=== PATIENT | female | born 1985 | race Caucasian/White ===

== ENCOUNTER 2018-01-20 02:35 | Inpatient (IN) ==
--- NOTE | 2018-01-20 04:15 | Internal Med History&Physical ---
<Bong Reveles - Last Filed: 01/20/18 05:36> Date of Encounter: 01/20/18 Time of Encounter: 04:10 Internal Medicine - H&P: HPI Chief complaint: OD Admitted From: Hospital to Hospital Transfer Plans for Post Hospital Care: Transfer Psych Facility History of present illness: Ms. Crook is a 32 year old female with history of asthma, pancreatic cancer status post partial pancreatectomy, migraine headaches, status post splenectomy who presented to the ED via EMS/[facility] due to intentional suicide attempt. At the time of arrival and physical examination, the patient is completely unconscious and unable to be aroused by any form of stimuli so history is primarily received from previous providers and documentation. Patient apparently was seen by her 12-year-old son after taking up to 40 and labeled sleeping pills and/or muscle relaxants. Her son says that he witnessed this and at that time she had locked herself in her room. He called his dad who then called the police. The police knocked down the door and she was taken to the hospital via EMS. In the ED, the patient was noted to be drowsy, however she otherwise was protecting her airway and demonstrated normal vitals. Urine drug screen was normal. She does have a history of suicide attempts in the past, according to medical records. Past Med Surg Social Fam HX - Past Medical History Medical history: asthma, cancer, GERD, migraine, other Additional medical history: pancreatic cancer Psychiatric history: depression - Past Surgical History Surgical History: , splenectomy, other (Partial pancreatectomy) Additional surgical history: lymph nodes removed from neck - Social History Smoking Status: Current every day smoker Smokeless Tobacco Status: No Alcohol use: occasionally Drug use: marijuana Internal Medicine - H&P: Meds Albuterol Sulfate [Albuterol Inhaler] 2 aerosol IH QID 07/22/17 [History] Omeprazole Magnesium [Prilosec] 40 mg PO DAILY 07/22/17 [History] Lipase/Protease/Amylase [Sukh Bender 12,000 Units Capsule] 1 each PO TID 01/15/18 [History] Naproxen [Naprosyn] 500 mg PO BID #10 tablet 01/15/18 [Rx] Allergy/AdvReac Type Severity Reaction Status Date / Time Amoxicillin AdvReac Rash Verified 07/08/17 23:06 latex AdvReac Rash Verified 07/08/17 23:06 Penicillins [PCN] AdvReac Rash Verified 07/08/17 23:06 ROS unobtainable: due to mental status All Systems PM: A 10-system review of systems was performed and is negative for pertinent findings except as documented above in the HPI. - Constitutional Exam: Gen: Vitals noted. Patient is unconscious at time of examination with episodes of intermittent apnea Eyes: anicteric sclerae, moist conjunctivae HENT: Atraumatic; oropharynx clear with moist mucous membranes and no mucosal ulcerations; normal hard and soft palate Neck: Trachea midline; supple, no thyromegaly or lymphadenopathy Cardiac: RRR, no murmur, +S1/S2 Pulmonary: CTA bilaterally, no wheezes, rales or rhonchi, equal chest expansion Abdomen: soft, nontender, no guarding. No masses or hepatosplenomegaly MSK: ROM intact, no joint swelling noted Extremities: no BLE edema, nontender calf, no cyanosis or clubbing Skin: Normal temperature, turgor and texture; no rash, ulcers or subcutaneous nodules Neuro: Patient is not alert to any form of stimuli Internal Med - H&P Results - Labs CBC & Chem 7: 01/20/18 04:48 - Assessment and plan (1) Suicide attempt by multiple drug overdose Current Visit: Yes Status: Acute Assessment and plan: Intentional overdose with unknown intoxicants per family members Patient apparently took multiple pills in an attempt to end her own life Poison control was not called from ED as the medications were unmarked Vitals have remained stable during her stay thus far We will continue to monitor vitals, cardiac rhythm, QTc, neurological function Consult to psychiatry is indicated when patient's mentation improves Qualifiers: Encounter type: initial encounter Qualified Code(s): T50.902A - Poisoning by unspecified drugs, medicaments and biological substances, intentional self- harm, initial encounter (2) Respiratory depression Current Visit: Yes Status: Acute Assessment and plan: Respiratory depression with intermittent apnea secondary to toxic ingestion Patient is having intermittent episodes of prolonged apnea She otherwise appears to be protecting her airway appropriately ABG 7.29/56/141/27/99 on 2L If the patient's respiratory status worsens, we will need to intubate We will repeat ABG at 8am Consult to Pulmonology (3) Pancreas (digestive gland) works poorly Current Visit: Yes Status: Acute Assessment and plan: Hx of pancreatic cancer with partial pancreatectomy We will hold supplemental peptides while NPO (4) DVT prophylaxis Current Visit: Yes Status: Acute Assessment and plan: SQ Heparin - Time Spent With Patient Total time spent is greater than 50% in coordination of care (as documented) at patient's floor/unit and/or counseling patient: Douglas Hinojosa - Last Filed: 01/20/18 06:09> Date of Encounter: 01/20/18 Internal Medicine - H&P: HPI History of present illness: Ms. Crook is a 32 year old female All Systems PM: A 10-system review of systems was performed and is negative for pertinent findings except as documented above in the HPI. - Constitutional Vitals: Pulse Resp BP Pulse Ox 86 15 99/42 97 01/20/18 06:00 01/20/18 06:00 01/20/18 06:00 01/20/18 06:00 Internal Med - H&P Results - Labs CBC & Chem 7: 01/20/18 04:48 Labs: BMP 01/20/18 04:48 Sodium 145 Potassium 4.0 Chloride 114 H Carbon Dioxide 27 BUN 10 Creatinine 0.52 L Glucose 113 H Calcium 8.4 L Liver Function 01/20/18 Range/Units 04:48 Total Bilirubin 0.4 (0.3-1.0) mg/dL AST 12 L (13-39) Units/L ALT 10 (7-52) Units/L Alkaline Phosphatase 50 (34-104) Units/L Albumin 3.7 (3.5-5.7) g/dL - ABG Interpretation ABG results: 01/20/18 04:44 ABG pH 7.29 L ABG pCO2 56 H ABG pO2 141 H ABG HCO3 27 ABG Total CO2 28 H ABG O2 Saturation 99 H ABG Base Excess -1 - Time Spent With Patient Total time spent is greater than 50% in coordination of care (as documented) at patient's floor/unit and/or counseling patient: - Attending Attestation I performed a history and physical exam of the patient and discussed management with the resident. I reviewed the resident's note and agree with the documented findings and plan of care. Christine Crook is a 32 year old lady who is brought here on transfer from [place] where she was taken to after an intentional overdose by ingestion of unknown sleeping pills and muscle relaxants. It was mentioned to me that this was witnessed by her 12 year old son who then called his father and in turn contacted the police. In the ER she was lethargic but arousable. UDS was unremarkable. She has a prior hx of SI in the past. Family history unable to be obtained due to mental status. On arrival here she appears obtunded but is protecting her airway although she has occasional apneic episodes. Pupils minimally reactive to light. Not responsive to vigorous tactile pressure. Oropharynx clear. CTABL. Nl s1/s2, abdomen soft, no c/c/e, unable to assess neurologic and psych status at the moment. Labs remarkable for lactate of 3.1 at midnight. Will admit to ICU as inpatient. Although she appears hemodynamically stable at this time, she needs close clinical monitoring due to potential decline in respiratory status. Low threshold for intubation if seen to not be protecting her airway or increasing apneic episodes lead to CO2 retention. Serial ABGs should be obtained. Fluid resuscitation and monitor glycemia. Trend lactate. Monitor on telemetry and review QTc; original was 384 ms. DVT prophylaxis. NPO status. AN DYER.
[2018-01-20] MEDS ORDERED: 0.9 % Sodium Chloride 1,000 ML IVC SCH (04:30)
[2018-01-20 04:48] LABS: ABG Base Excess -1 mEq/L (-2 to 3); ABG HCO3 27 mEq/L (21-27); ABG Oxygen Saturation 99 % (95-98); ABG PCO2 56 mmHg (35-45); ABG PH 7.29 pH Units (7.32-7.45); ABG PO2 141 mmHg (85-104); ABG TCO2 28 mEq/L (20-26)
[2018-01-20 05:18] LABS: Alanine Aminotransferase 10 Units/L (7-52); Albumin 3.7 g/dL (3.5-5.7); Albumin/Globulin Ratio 1.4 (1.1-2.2); Alkaline Phosphatase 50 Units/L (34-104); Aspartate Amino Transferase 12 Units/L (13-39); BUN/Creatinine Ratio 19 (6-26); Bilirubin,Total 0.4 mg/dL (0.3-1.0); Blood Urea Nitrogen 10 mg/dL (6-20); Calcium 8.4 mg/dL (8.6-10.3); Carbon Dioxide 27 mEq/L (23-29); Chloride 114 mEq/L (98-107); Globulin 2.7 g/dL (2.4-3.5); Glucose 113 mg/dL (70-105); Magnesium 1.9 mg/dL (1.6-2.6); Osmolality,Calculated 300 (280-300); Sodium 145 mEq/L (136-145); Total Protein 6.4 g/dL (6.4-8.9); eGFR For Non-African Americans > 60 (> 60)
[2018-01-20] MEDS: 0.9 % Sodium Chloride 1,000 ML IVC SCH ×2 (05:28→07:32)
[2018-01-20 06:17] LABS: Monocytes % 9.7 %
[2018-01-20 06:19] LABS: Basophils # 0.1 K/mcL (0.0-0.2); Basophils % 0.4 %; Eosinophils # 0.3 K/mcL (0.0-0.6); Eosinophils % 1.1 %; Hematocrit 42.5 % (35.3-44.9); Hemoglobin 13.9 g/dL (11.5-15.4); Immature Granulocytes % 0.6 % (0-4); Lymphocytes # 3.3 K/mcL (0.6-4.6); Lymphocytes % 13.1 %; Mean Corpuscular HGB Conc 32.7 g/dL (31.6-35.5); Mean Corpuscular Hemoglobin 30.8 pg (28.0-33.3); Mean Corpuscular Volume 94.2 fL (83.0-100.0); Mean Platelet Volume 10.5 fL (9.4-12.4); Monocytes # 2.5 K/mcL (0.0-1.3); Platelet Count 465 K/mcL (140-400); Red Blood Count 4.51 M/mcL (3.82-4.97); Red Cell Distribution Width 15.3 % (11.5-14.5); Segmented Neutrophils % 75.1 %
[2018-01-20 06:43] LABS: Platelet Estimate Increased (Normal)
[2018-01-20] MEDS: Pantoprazole 40 MG VIAL IVP SCH (07:31)
[2018-01-20] MEDS: *HR* Heparin 5,000 UNIT/ML VIAL SQ SCH ×2 (07:32→15:17)
[2018-01-20 07:41] LABS: ABG Base Excess -1 mEq/L (-2 to 3); ABG HCO3 26 mEq/L (21-27); ABG Oxygen Saturation 93 % (95-98); ABG PCO2 52 mmHg (35-45); ABG PH 7.31 pH Units (7.32-7.45); ABG PO2 74 mmHg (85-104); ABG TCO2 28 mEq/L (20-26)
--- NOTE | 2018-01-20 07:43 | Pulmonology History & Physical ---
<Nathan Deleon - Last Filed: 01/20/18 11:08> Date of Encounter: 01/20/18 Time of Encounter: 07:36 Assessment and Plan (1) Suicide attempt by multiple drug overdose Current visit: Yes Status: Acute Unknown drug ingestion Patient is drowsy and unable to arouse on exam UDS (-), APAP and ASA (-), EtOH (-) EKG: NSR and intervals WNL. Qualifiers: Encounter type: initial encounter Qualified Code(s): T50.902A - Poisoning by unspecified drugs, medicaments and biological substances, intentional self- harm, initial encounter (2) Drug-induced encephalopathy Current visit: Yes Status: Acute (3) Apnea Current visit: Yes Status: Acute Patient continues to maintain airway AB.31/52/74/26/93% Continue to monitor (4) Pancreas (digestive gland) works poorly Current visit: Yes Status: Acute Hx of pancreatic cancer (5) DVT prophylaxis Current visit: Yes Status: Acute Heparin 5000 unit q8h History of Present Illness Chief complaint: Ingestion; Suicide attempt HPI: Ms. Crook is a 32 year old female with PMHX , spelnectomy, and partial pancreatectomy with active pancreatic CA presented by EMS due to intentional suicide attempt. Patient has been unconscious since arrival. Suicide attempt was witnessed by 12-year-old son states patient took up to 40 unidentified pills possibly sleeping pills/muscle relaxants. Patient is protecting her airway. Hx of suicide attempts in the past. Past Med Surg Social Fam HX - Past Medical History Medical history: asthma, cancer, GERD, migraine, other Additional medical history: pancreatic cancer Psychiatric history: depression - Past Surgical History Surgical History: , splenectomy, other (Partial pancreatectomy) Additional surgical history: lymph nodes removed from neck - Social History Smoking Status: Current every day smoker Smokeless Tobacco Status: No Alcohol use: occasionally Drug use: marijuana Medications and Allergies Omeprazole Magnesium [Prilosec] 40 mg PO DAILY 07/22/17 [History] Naproxen [Naprosyn] 500 mg PO BID #10 tablet 01/15/18 [Rx] Lipase/Protease/Amylase [Creon Dr 24,000 Units Capsule] 2 cap PO AD 01/20/18 [History] Lipase/Protease/Amylase [Creon Dr 24,000 Units Capsule] 3 cap PO TIDWM 01/20/18 [History] Allergy/AdvReac Type Severity Reaction Status Date / Time Amoxicillin AdvReac Rash Verified 07/08/17 23:06 latex AdvReac Rash Verified 07/08/17 23:06 Penicillins [PCN] AdvReac Rash Verified 07/08/17 23:06 All Systems: The remainder of the systems were reviewed and are negative Physical Examination Vital Signs: Vital Signs, Last 4 Hours Temp Pulse Resp BP Pulse Ox 01/20/18 07:00 97.7 F 01/20/18 06:00 86 15 99/42 97 01/20/18 05:00 84 15 99/67 96 01/20/18 04:30 83 14 101/70 96 Results - Laboratory Findings CBC and BMP: 01/20/18 06:04 01/20/18 04:48 ABG ABG pH 7.29 pH Units (7.32-7.45) L 01/20/18 04:44 ABG pCO2 56 mmHg (35-45) H 01/20/18 04:44 ABG pO2 141 mmHg (85-104) H 01/20/18 04:44 ABG O2 Saturation 99 % (95-98) H 01/20/18 04:44 Abnormal lab findings: Abnormal lab results WBC 25.3 K/mcL (4.3-11.1) H 01/20/18 06:04 RDW 15.3 % (11.5-14.5) H 01/20/18 06:04 Plt Count 465 K/mcL (140-400) H 01/20/18 06:04 Neutrophils # 19.0 K/mcL (1.6-8.9) H 01/20/18 06:04 Monocytes # 2.5 K/mcL (0.0-1.3) H 01/20/18 06:04 Platelet Estimate Increased (Normal) H 01/20/18 06:04 ABG pH 7.29 pH Units (7.32-7.45) L 01/20/18 04:44 ABG pCO2 56 mmHg (35-45) H 01/20/18 04:44 ABG pO2 141 mmHg (85-104) H 01/20/18 04:44 ABG Total CO2 28 mEq/L (20-26) H 01/20/18 04:44 ABG O2 Saturation 99 % (95-98) H 01/20/18 04:44 Chloride 114 mEq/L (98-107) H 01/20/18 04:48 Creatinine 0.52 mg/dL (0.60-1.20) L 01/20/18 04:48 Glucose 113 mg/dL (70-105) H 01/20/18 04:48 POC Glucose 118 mg/dL (70-99) H 01/20/18 07:07 Calcium 8.4 mg/dL (8.6-10.3) L 01/20/18 04:48 AST 12 Units/L (13-39) L 01/20/18 04:48 <Pradeep Hoff M - Last Filed: 01/21/18 15:43> Date of Encounter: 01/21/18 History of Present Illness HPI: Ms. Crook is a 32 year old female All Systems: The remainder of the systems were reviewed and are negative Physical Examination Vital Signs: Vital Signs, Last 4 Hours Temp Pulse Resp BP Pulse Ox 01/20/18 09:04 73 14 146/83 99 01/20/18 08:50 14 99 01/20/18 07:44 97.7 F 85 16 95/42 98 01/20/18 07:00 97.7 F Results - Laboratory Findings CBC and BMP: 01/21/18 04:24 01/21/18 04:24 ABG ABG pH 7.31 pH Units (7.32-7.45) L 01/20/18 07:37 ABG pCO2 52 mmHg (35-45) H 01/20/18 07:37 ABG pO2 74 mmHg (85-104) L D 01/20/18 07:37 ABG O2 Saturation 93 % (95-98) L 01/20/18 07:37 Abnormal lab findings: Abnormal lab results WBC 25.3 K/mcL (4.3-11.1) H 01/20/18 06:04 RDW 15.3 % (11.5-14.5) H 01/20/18 06:04 Plt Count 465 K/mcL (140-400) H 01/20/18 06:04 Neutrophils # 19.0 K/mcL (1.6-8.9) H 01/20/18 06:04 Monocytes # 2.5 K/mcL (0.0-1.3) H 01/20/18 06:04 Platelet Estimate Increased (Normal) H 01/20/18 06:04 ABG pH 7.31 pH Units (7.32-7.45) L 01/20/18 07:37 ABG pCO2 52 mmHg (35-45) H 01/20/18 07:37 ABG pO2 74 mmHg (85-104) L D 01/20/18 07:37 ABG Total CO2 28 mEq/L (20-26) H 01/20/18 07:37 ABG O2 Saturation 93 % (95-98) L 01/20/18 07:37 Chloride 114 mEq/L (98-107) H 01/20/18 04:48 Creatinine 0.52 mg/dL (0.60-1.20) L 01/20/18 04:48 Glucose 113 mg/dL (70-105) H 01/20/18 04:48 POC Glucose 118 mg/dL (70-99) H 01/20/18 07:07 Calcium 8.4 mg/dL (8.6-10.3) L 01/20/18 04:48 AST 12 Units/L (13-39) L 01/20/18 04:48 - Attending Attestation I examined this patient and my medical decision-making was reviewed with the Resident Physician. I agree with the documented findings, disposition and treatment plan as described except to the extent set forth below. Patient seen and examined. Labs, radiology, chart personally reviewed. Agree with resident's history and physical, assessment, plan with following comments: POLISHER SAND: Patient doesn't follows commands, GCS 4. Psych consult. Pulmonary: Acceptable oxygenation and ventilation, however she has apnea and poor gag and cough reflex and needed airway protection and she had to be intubated. Follow up ABG. Technically patient has acute respiratory failure with hypercapnia and this is most likely would be from central nervous system depression from the overdose and needed intubation. Ventilator setting was adj usted according to the ABG. Cardiovascular: stable, however because of the significant amount of medication that she took there is always risk of arrhythmias and needs to be monitored with telemetry. GI: Nutrition per dietary and GI prophylaxis per routine Heme: DVT prophylaxis per routine ID: no source of infection Renal; urine out put and renal funtion reviewed Endorcine: blood glucose is monitored Lines: all lines checked and no evidence of infections Skin: skin care to prevent pressure ulcers per nursing routine care I spent 35 min of Critical Care time with this patient. It involved decision making of high complexity to assess, manipulate, and support vital organ system failure and/or to prevent further life threatening deterioration of the patient's condition. The time involved in the performance of separately reportable procedures was not counted toward critical care time.
[2018-01-20] MEDS ORDERED: Artificial Tears SOLN 15 ML BOTTLE BOTH EYES PRN (08:44)
--- NOTE | 2018-01-20 08:46 | Event Note ---
Date of Encounter: 01/20/18 Time of Encounter: 08:46 Procedure Note:
[2018-01-20] MEDS ORDERED: [UNRECOGNIZED DRUG - OTHER] PO SCH (09:00)
[2018-01-20] MEDS ORDERED: PROTEASE PO SCH (09:00)
[2018-01-20] MEDS ORDERED: AMYLASE PO SCH (09:00)
[2018-01-20] MEDS ORDERED: LIPASE PO SCH (09:00)
[2018-01-20 10:45] LABS: ABG Base Excess 0 mEq/L (-2 to 3); ABG HCO3 25 mEq/L (21-27); ABG Oxygen Saturation 99 % (95-98); ABG PCO2 43 mmHg (35-45); ABG PH 7.38 pH Units (7.32-7.45); ABG PO2 122 mmHg (85-104); ABG TCO2 26 mEq/L (20-26); Blood Gas Modality ASSIST CONTROL; Blood Gas PEEP 5 cm H2O; Blood Gas Respiration Rate 14; Blood Gas VT 450 cc
--- NOTE | 2018-01-20 11:10 | Procedure Note ---
<Nathan Deleon - Last Filed: 01/20/18 11:11> Date of procedure: 01/20/18 Pre-op diagnosis: AMS; inability to protect airway Post-op diagnosis: same Procedure: Patient underwent intubation. MAC 4 blade was used with a 7.5 ET tube. Respiratory was at bedside as well as my attending Dr. Hoff. Initial intubation was attempted with no sedation given patient current mental status, however resistance was met at the cords. Patient received 10mg of etomidate. Chords were visualized and ET tube was directed through the cords and measured 22 at the lip. Patient tolerated procedure well. No complications. Confirmed placement with colorimetric CO2 detector as well as post-intubation CXR which showed proper placement of ET tube above the james. Anesthesia: IV sedation (etomidate 10mg) Surgeon: Pradeep Hoff Was there an assistant construction superintendent present: Yes Automobile Mechanic Apprentice: Nathan Deleon Estimated blood loss (cc): 0 Specimen: N/A Pathology: none sent Condition: stable Disposition: ICU <Pradeep Hoff - Last Filed: 01/20/18 11:29> Procedure: I examined this patient and my medical decision-making was reviewed with the Resident Physician. I agree with the documented findings, disposition and treatment plan as described except to the extent set forth below. I have personally supervised the resident during this procedure without immediate complications
[2018-01-20] MEDS: Artificial Tears SOLN 15 ML BOTTLE BOTH EYES SCH ×3 (11:45→20:03)
[2018-01-20] MEDS: Chlorhexidine Rinse 15 ML MOUTHWASH MM SCH ×2 (11:45→20:03)
[2018-01-21] MEDS: Artificial Tears SOLN 15 ML BOTTLE BOTH EYES SCH ×3 (00:18→08:03)
[2018-01-21] MEDS: *HR* Heparin 5,000 UNIT/ML VIAL SQ SCH ×4 (00:19→22:30)
[2018-01-21 04:33] LABS: ABG Base Excess 2 mEq/L (-2 to 3); ABG HCO3 27 mEq/L (21-27); ABG Oxygen Saturation 98 % (95-98); ABG PCO2 44 mmHg (35-45); ABG PO2 114 mmHg (85-104); ABG TCO2 29 mEq/L (20-26); Blood Gas Modality ASSIST CONTROL; Blood Gas PEEP 5 cm H2O; Blood Gas Respiration Rate 14; Blood Gas VT 450 cc
[2018-01-21 04:48] LABS: Basophils # 0.1 K/mcL (0.0-0.2); Basophils % 0.3 %; Eosinophils # 0.1 K/mcL (0.0-0.6); Eosinophils % 0.4 %; Hematocrit 39.7 % (35.3-44.9); Hemoglobin 13.1 g/dL (11.5-15.4); Immature Granulocytes % 0.5 % (0-4); Lymphocytes # 1.7 K/mcL (0.6-4.6); Lymphocytes % 7.4 %; Mean Corpuscular Hemoglobin 30.7 pg (28.0-33.3); Mean Platelet Volume 10.7 fL (9.4-12.4); Monocytes # 1.5 K/mcL (0.0-1.3); Monocytes % 6.7 %; Neutrophils # 19.5 K/mcL (1.6-8.9); Platelet Count 418 K/mcL (140-400); Red Blood Count 4.27 M/mcL (3.82-4.97); Red Cell Distribution Width 15.9 % (11.5-14.5); Segmented Neutrophils % 84.7 %
[2018-01-21 05:20] LABS: BUN/Creatinine Ratio 20 (6-26); Blood Urea Nitrogen 10 mg/dL (6-20); Calcium 9.1 mg/dL (8.6-10.3); Carbon Dioxide 24 mEq/L (23-29); Chloride 113 mEq/L (98-107); Glucose 153 mg/dL (70-105); Osmolality,Calculated 300 (280-300); Potassium 4.1 mEq/L (3.5-5.1); Sodium 144 mEq/L (136-145); eGFR For Non-African Americans > 60 (> 60)
[2018-01-21] MEDS: Chlorhexidine Rinse 15 ML MOUTHWASH MM SCH (08:03)
[2018-01-21] MEDS: Pantoprazole 40 MG VIAL IVP SCH (08:03)
--- NOTE | 2018-01-21 08:41 | Pulmonology Progress Note ---
<Pradeep Hoff M - Last Filed: 01/21/18 11:36> Date of Encounter: 01/21/18 Objective PUL Vital signs: Last Vital Signs Temp 99.8 F H 01/21/18 11:00 Pulse 90 01/21/18 11:00 Resp 16 01/21/18 11:00 BP 118/72 01/21/18 11:00 Pulse Ox 99 01/21/18 11:00 Ventilator Settings Ventilator Settings: Ventilator Settings, Last 8 Hours Ventilator Tidal Volume 450 Setting Ventilator Tidal Volume 450 Setting Ventilator Tidal Volume 450 Setting Ventilator Tidal Volume 450 Setting Ventilator Tidal Volume 450 Setting Ventilator Respiratory Rate 14 Setting Ventilator Respiratory Rate 14 Setting Ventilator Respiratory Rate 14 Setting Ventilator Respiratory Rate 14 Setting Ventilator Respiratory Rate 14 Setting Actual Respiratory Rate 23 Actual Respiratory Rate 17 Actual Respiratory Rate 23 Actual Respiratory Rate 28 Actual Respiratory Rate 15 Actual Respiratory Rate 14 Actual Respiratory Rate 14 Positive End Expiratory 5 Pressure Positive End Expiratory 5 Pressure Positive End Expiratory 5 Pressure Positive End Expiratory 5 Pressure Positive End Expiratory 5 Pressure Peak Inspiratory Airway 11 Pressure Peak Inspiratory Airway 10 Pressure Peak Inspiratory Airway 10 Pressure Peak Inspiratory Airway 10 Pressure Peak Inspiratory Airway 10 Pressure Peak Inspiratory Airway 16 Pressure Peak Inspiratory Airway 15 Pressure Peak Inspiratory Airway 15 Pressure Results - Laboratory Findings CBC and BMP: 01/21/18 04:24 01/21/18 04:24 ABG ABG pH 7.40 pH Units (7.32-7.45) 01/21/18 04:30 ABG pCO2 44 mmHg (35-45) 01/21/18 04:30 ABG pO2 114 mmHg (85-104) H 01/21/18 04:30 ABG O2 Saturation 98 % (95-98) 01/21/18 04:30 Abnormal lab findings: Abnormal lab results WBC 23.0 K/mcL (4.3-11.1) H 01/21/18 04:24 RDW 15.9 % (11.5-14.5) H 01/21/18 04:24 Plt Count 418 K/mcL (140-400) H 01/21/18 04:24 Neutrophils # 19.5 K/mcL (1.6-8.9) H 01/21/18 04:24 Monocytes # 1.5 K/mcL (0.0-1.3) H 01/21/18 04:24 Platelet Estimate Increased (Normal) H 01/20/18 06:04 ABG pO2 114 mmHg (85-104) H 01/21/18 04:30 ABG Total CO2 29 mEq/L (20-26) H 01/21/18 04:30 Chloride 113 mEq/L (98-107) H 01/21/18 04:24 Creatinine 0.49 mg/dL (0.60-1.20) L 01/21/18 04:24 Glucose 153 mg/dL (70-105) H 01/21/18 04:24 POC Glucose 120 mg/dL (70-99) H 01/21/18 11:29 AST 12 Units/L (13-39) L 01/20/18 04:48 - Clinical Findings Intake & Output: Intake & Output 01/20/18 01/21/18 01/21/18 23:59 07:59 15:59 Output Total 425 / 425 275 / 275 300 / 300 Balance -425 / -425 -275 / -275 -300 / -300 Weight 81.6 kg Consult Discharge Plan - Plan Referrals: NONE,PCP [Primary Care Provider] - - Attending Attestation I examined this patient and my medical decision-making was reviewed with the Resident Physician. I agree with the documented findings, disposition and treatment plan as described except to the extent set forth below. Patient seen and examined. Labs, radiology, chart personally reviewed. 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 Pulmonary: Acceptable oxygenation and ventilation and patient was extubated successfully. Patient was intubated for airway protection and also acute respiratory failure with hypercapnia Cardiovascular: stable GI: Nutrition per dietary and GI prophylaxis per routine Heme: DVT prophylaxis per routine Renal; urine out put and renal funtion reviewed Endorcine: blood glucose is monitored Lines: all lines checked and no evidence of infections Skin: skin care to prevent pressure ulcers per nursing routine care Psych: Consultation and will need to pink sleep at this time with a sitter and patient hemodynamically stable to be transferred to the floor. <Aurelia Jimenez - Last Filed: 01/21/18 13:43> Date of Encounter: 01/21/18 Time of Encounter: 08:40 Assessment and Plan (1) Suicide attempt by drug ingestion Current Visit: Yes Status: Acute Purposeful ingestion of unknown substances resulting in progressively declining mental status resulting in intubation. Full work up with ekg wml, negative UDS, normal acetaminophen , normal asa, n ormal head CT, and normal UA - discontinue IV protonix - start PO for GI prophylaxis given unknown ingestion - psych consulted - sitter at bedside -pink slipped at 11:15 on 01-21-[address] Ugalde Qualifiers: Qualified Code(s): T50.902D - Poisoning by unspecified drugs, medicaments and biological substances, intentional self-harm, subsequent encounter (2) Drug-induced encephalopathy Current Visit: Yes Status: Resolved Acute drug induced encephalopathy resulting in periods of apnea lasting 20-30 seconds and reduced gag reflux necessitating intubation on 01-20 for airway protection. Mental status improving as alert but unable to speak. - transfer to any tele bed as case accepted by Hospitalist team - continue cardiac monitoring - passed nurse swallow study, diet is clears - diet per ICU until 1899, then per hospitalist team (3) Pancreas (digestive gland) works poorly Current Visit: Yes Status: Acute pancreatic cancer s/p partial pancreatectomy - continue home Creon (4) Apnea for greater than 15 seconds Current Visit: Yes Status: Acute see above regarding need for intubation (5) Hypoactive gag reflex Current Visit: Yes Status: Acute see above regarding need for intubation (6) Elevated WBC count Current Visit: Yes Status: Acute Elevated white count of unknown etiology with stable vitals; continue to monitor and reassess pending clinical course - UA negative - Chest X-ray; perihilar opacities and left lung base like likely due to decreased profusion attributed to atelectasis - repeat CBC in am Qualifiers: Leukocytosis type: bandemia Qualified Code(s): D72.825 - Bandemia (7) DVT prophylaxis Current Visit: Yes Status: Acute heparin SQ Subjective Principal diagnosis: suicide attempt by multiple drug overdose Interval history: 32 y/o female with history of depression and pancreatic cancer s/p partial pancreatectomy intubated for airway protection due to poor gag reflex and altered mental status improved overnight and became more alert. She was successfully extubated and remained hemodynamically stable. Currently no speaking but able to communicate by head nod. ROS not obtained due to patient's inability to speak Objective PUL Vital signs: Last Vital Signs Temp 98.5 F 01/21/18 08:25 Pulse 82 01/21/18 08:25 Resp 18 01/21/18 08:25 BP 124/73 01/21/18 08:25 Pulse Ox 99 01/21/18 08:25 General appearance: no acute distress, alert Eyes: nonicteric Effort: normal Auscultation: bilateral: clear Cardiovascular: regular rate and rhythm Gastrointestinal: normoactive bowel sounds, soft, non-tender Integumentary: normal Extremities: no cyanosis, no edema Musculoskeletal: no deformities Gait: normal gait, normal posture non-focal exam, unable to assess due to mental status affect normal, depressed (withdrawn, lethargic ) Ventilator Settings Ventilator Settings: Ventilator Settings, Last 8 Hours Ventilator Tidal Volume 450 Setting Ventilator Tidal Volume 450 Setting Ventilator Tidal Volume 450 Setting Ventilator Tidal Volume 450 Setting Ventilator Tidal Volume 450 Setting Ventilator Tidal Volume 450 Setting Ventilator Tidal Volume 450 Setting Ventilator Tidal Volume 450 Setting Ventilator Tidal Volume 450 Setting Ventilator Tidal Volume 450 Setting Ventilator Respiratory Rate 14 Setting Ventilator Respiratory Rate 14 Setting Ventilator Respiratory Rate 14 Setting Ventilator Respiratory Rate 14 Setting Ventilator Respiratory Rate 14 Setting Ventilator Respiratory Rate 14 Setting Ventilator Respiratory Rate 14 Setting Ventilator Respiratory Rate 14 Setting Ventilator Respiratory Rate 14 Setting Ventilator Respiratory Rate 14 Setting Actual Respiratory Rate 23 Actual Respiratory Rate 17 Actual Respiratory Rate 23 Actual Respiratory Rate 28 Actual Respiratory Rate 15 Actual Respiratory Rate 14 Actual Respiratory Rate 14 Actual Respiratory Rate 14 Actual Respiratory Rate 14 Actual Respiratory Rate 14 Actual Respiratory Rate 14 Actual Respiratory Rate 19 Positive End Expiratory 5 Pressure Positive End Expiratory 5 Pressure Positive End Expiratory 5 Pressure Positive End Expiratory 5 Pressure Positive End Expiratory 5 Pressure Positive End Expiratory 5 Pressure Positive End Expiratory 5 Pressure Positive End Expiratory 5 Pressure Positive End Expiratory 5 Pressure Positive End Expiratory 5 Pressure Peak Inspiratory Airway 11 Pressure Peak Inspiratory Airway 10 Pressure Peak Inspiratory Airway 10 Pressure Peak Inspiratory Airway 10 Pressure Peak Inspiratory Airway 10 Pressure Peak Inspiratory Airway 16 Pressure Peak Inspiratory Airway 15 Pressure Peak Inspiratory Airway 15 Pressure Peak Inspiratory Airway 16 Pressure Peak Inspiratory Airway 16 Pressure Peak Inspiratory Airway 15 Pressure Peak Inspiratory Airway 17 Pressure Peak Inspiratory Airway 17 Pressure Results - Laboratory Findings CBC and BMP: 01/21/18 04:24 01/21/18 04:24 ABG ABG pH 7.40 pH Units (7.32-7.45) 01/21/18 04:30 ABG pCO2 44 mmHg (35-45) 01/21/18 04:30 ABG pO2 114 mmHg (85-104) H 01/21/18 04:30 ABG O2 Saturation 98 % (95-98) 01/21/18 04:30 Abnormal lab findings: Abnormal lab results WBC 23.0 K/mcL (4.3-11.1) H 01/21/18 04:24 RDW 15.9 % (11.5-14.5) H 01/21/18 04:24 Plt Count 418 K/mcL (140-400) H 01/21/18 04:24 Neutrophils # 19.5 K/mcL (1.6-8.9) H 01/21/18 04:24 Monocytes # 1.5 K/mcL (0.0-1.3) H 01/21/18 04:24 Platelet Estimate Increased (Normal) H 01/20/18 06:04 ABG pO2 114 mmHg (85-104) H 01/21/18 04:30 ABG Total CO2 29 mEq/L (20-26) H 01/21/18 04:30 Chloride 113 mEq/L (98-107) H 01/21/18 04:24 Creatinine 0.49 mg/dL (0.60-1.20) L 01/21/18 04:24 Glucose 153 mg/dL (70-105) H 01/21/18 04:24 POC Glucose 122 mg/dL (70-99) H 01/20/18 23:31 AST 12 Units/L (13-39) L 01/20/18 04:48 - Clinical Findings Intake & Output: Intake & Output 01/20/18 01/21/18 01/21/18 23:59 07:59 15:59 Output Total 425 / 425 425 / 425 Balance -425 / -425 -425 / -425 Weight 81.6 kg
[2018-01-21] MEDS ORDERED: (Lipase/Protease/Amylase [Creon Dr 24,000 Units Capsu PO SCH (16:38)
--- NOTE | 2018-01-21 16:38 | Consult Note ---
Date of Encounter: 01/21/18 Time of Encounter: 16:20 Assessment & Recommendation (1) Drug-induced encephalopathy Current visit: Yes Status: Suspected (2) Suicide attempt by drug ingestion Current visit: Yes Status: Acute Qualifiers: Encounter type: initial encounter Qualified Code(s): T50.902A - Poisoning by unspecified drugs, medicaments and biological substances, intentional self- harm, initial encounter History of Present Illness Patient: new to practice Requesting Physician: Douglas Tran MD Reason for consult: overdose History of present illness: Ms. Crook is a 32 year old female Chief complaint I want to go home History of present illness the patient was admitted after a multidrug overdose. She was placed on a pink slip for involuntary hospitalization. She did not discuss much with me she denied suicidal ideation and reported that she wanted to go home. This in spite of the fact that she is on monitors in an ICU. At this point the patient was advised to continue on the current treatment she will go to a stepdown unit. We want her to come to . but we would like her to be ambulatory, on a regular diet and able to participate in the inpatient psychiatric milieu. CC: Douglas Tran MD Past Med Surg Social Fam HX - Past Medical History Medical history: asthma, cancer, GERD, migraine, other - Past Surgical History Surgical History: , splenectomy, other - Social History Smoking Status: Current every day smoker Smokeless Tobacco Status: No Alcohol use: occasionally Drug use: marijuana Medications & Allergies Omeprazole Magnesium [Prilosec] 40 mg PO DAILY 07/22/17 [History] Naproxen [Naprosyn] 500 mg PO BID #10 tablet 01/15/18 [Rx] Lipase/Protease/Amylase [Sukh Bender 24,000 Units Capsule] 2 cap PO AD 01/20/18 [History] Lipase/Protease/Amylase [Sukh Bender 24,000 Units Capsule] 3 cap PO TIDWM 01/20/18 [History] Allergy/AdvReac Type Severity Reaction Status Date / Time Amoxicillin AdvReac Rash Verified 07/08/17 23:06 latex AdvReac Rash Verified 07/08/17 23:06 Penicillins [PCN] AdvReac Rash Verified 07/08/17 23:06 Review of Systems Psychiatric: Reports: suicidal ideation Psychiatry Exam - Constitutional Vitals: Temp Pulse Resp BP Pulse Ox 99.8 F H 93 16 120/84 100 01/21/18 11:00 01/21/18 14:58 01/21/18 14:58 01/21/18 14:58 01/21/18 14:58 - Psychiatric Patient Orientation: Yes Person, Yes Time Level of alertness: Alert Behavior: hostile Mood Description: Angry, Irritable Affect description: dysphoric Speech pattern: normal rate Language & Vocabulary: consistent with education, limited, difficulty finding words Thought Process: Intact Thought Content: Yes Suicidal ideation Perceptual Disturbances: Yes Reacting to internal stimuli Attention Span Ability: Unable to Sustain Attention Memory Description: Grossly Intact Patient Reliability: Not Reliable Historian Fund of knowledge: Yes average Judgment: Poor Insight: None Results - Labs Labs: Laboratory Last Values WBC 23.0 K/mcL (4.3-11.1) H 01/21/18 04:24 RBC 4.27 M/mcL (3.82-4.97) 01/21/18 04:24 Hgb 13.1 g/dL (11.5-15.4) 01/21/18 04:24 Hct 39.7 % (35.3-44.9) 01/21/18 04:24 MCV 93.0 fL (83.0-100.0) 01/21/18 04:24 MCH 30.7 pg (28.0-33.3) 01/21/18 04:24 MCHC 33.0 g/dL (31.6-35.5) 01/21/18 04:24 RDW 15.9 % (11.5-14.5) H 01/21/18 04:24 Plt Count 418 K/mcL (140-400) H 01/21/18 04:24 MPV 10.7 fL (9.4-12.4) 01/21/18 04:24 Immature Gran % 0.5 % (0-4) 01/21/18 04:24 Seg Neutrophils % 84.7 % 01/21/18 04:24 Lymphocytes % 7.4 % 01/21/18 04:24 Monocytes % 6.7 % 01/21/18 04:24 Eosinophils % 0.4 % 01/21/18 04:24 Basophils % 0.3 % 01/21/18 04:24 Neutrophils # 19.5 K/mcL (1.6-8.9) H 01/21/18 04:24 Lymphocytes # 1.7 K/mcL (0.6-4.6) 01/21/18 04:24 Monocytes # 1.5 K/mcL (0.0-1.3) H 01/21/18 04:24 Eosinophils # 0.1 K/mcL (0.0-0.6) 01/21/18 04:24 Basophils # 0.1 K/mcL (0.0-0.2) 01/21/18 04:24 Platelet Estimate Increased (Normal) H 01/20/18 06:04 Sample Site L Radial 01/20/18 10:41 ABG pH 7.40 pH Units (7.32-7.45) 01/21/18 04:30 ABG pCO2 44 mmHg (35-45) 01/21/18 04:30 ABG pO2 114 mmHg (85-104) H 01/21/18 04:30 ABG HCO3 27 mEq/L (21-27) 01/21/18 04:30 ABG Total CO2 29 mEq/L (20-26) H 01/21/18 04:30 ABG O2 Saturation 98 % (95-98) 01/21/18 04:30 ABG Base Excess 2 mEq/L (-2 to 3) 01/21/18 04:30 Eyal Test Positive 01/20/18 10:41 Respiration Rate 14 01/21/18 04:30 O2 Delivery Device ET Tube 01/21/18 04:30 Blood Gas Modality ASSIST CONTROL 01/21/18 04:30 Inspired O2 30.0 (1-15=lpm [id number]=%) 01/21/18 04:30 Tidal Volume 450 cc 01/21/18 04:30 PEEP 5 cm H2O 01/21/18 04:30 Sodium 144 mEq/L (136-145) 01/21/18 04:24 Potassium 4.1 mEq/L (3.5-5.1) 01/21/18 04:24 Chloride 113 mEq/L (98-107) H 01/21/18 04:24 Carbon Dioxide 24 mEq/L (23-29) 01/21/18 04:24 BUN 10 mg/dL (6-20) 01/21/18 04:24 Creatinine 0.49 mg/dL (0.60-1.20) L 01/21/18 04:24 Est GFR ( Amer) > 60 (> 60) 01/21/18 04:24 Est GFR (Non-Af Amer) > 60 (> 60) 01/21/18 04:24 BUN/Creatinine Ratio 20 (6-26) 01/21/18 04:24 Glucose 153 mg/dL (70-105) H 01/21/18 04:24 POC Glucose 120 mg/dL (70-99) H 01/21/18 11:29 Calculated Osmolality 300 (280-300) 01/21/18 04:24 Lactic Acid 2.0 mmol/L (0.5-2.2) 01/20/18 06:04 Calcium 9.1 mg/dL (8.6-10.3) 01/21/18 04:24 Magnesium 1.9 mg/dL (1.6-2.6) 01/20/18 04:48 Total Bilirubin 0.4 mg/dL (0.3-1.0) 01/20/18 04:48 AST 12 Units/L (13-39) L 01/20/18 04:48 ALT 10 Units/L (7-52) 01/20/18 04:48 Alkaline Phosphatase 50 Units/L (34-104) 01/20/18 04:48 Serum Total Protein 6.4 g/dL (6.4-8.9) 01/20/18 04:48 Albumin 3.7 g/dL (3.5-5.7) 01/20/18 04:48 Globulin 2.7 g/dL (2.4-3.5) 01/20/18 04:48 Albumin/Globulin Ratio 1.4 (1.1-2.2) 01/20/18 04:48 Consult Discharge Plan - Plan Referrals: NONE,PCP [Primary Care Provider] -
[2018-01-21] MEDS: (Lipase/Protease/Amylase [Creon Dr 24,000 Units Capsu PO SCH (17:00)
[2018-01-22 05:00] LABS: Basophils # 0.1 K/mcL (0.0-0.2); Basophils % 0.6 %; Eosinophils # 0.4 K/mcL (0.0-0.6); Eosinophils % 2.3 %; Hematocrit 39.3 % (35.3-44.9); Hemoglobin 12.8 g/dL (11.5-15.4); Immature Granulocytes % 0.3 % (0-4); Lymphocytes # 5.2 K/mcL (0.6-4.6); Lymphocytes % 29.5 %; Mean Corpuscular HGB Conc 32.6 g/dL (31.6-35.5); Mean Corpuscular Hemoglobin 30.4 pg (28.0-33.3); Mean Corpuscular Volume 93.3 fL (83.0-100.0); Mean Platelet Volume 11.1 fL (9.4-12.4); Monocytes # 1.5 K/mcL (0.0-1.3); Monocytes % 8.4 %; Neutrophils # 10.3 K/mcL (1.6-8.9); Platelet Count 419 K/mcL (140-400); Red Blood Count 4.21 M/mcL (3.82-4.97); Red Cell Distribution Width 15.3 % (11.5-14.5); Segmented Neutrophils % 58.9 %
[2018-01-22 05:19] LABS: BUN/Creatinine Ratio 27 (6-26); Blood Urea Nitrogen 12 mg/dL (6-20); Calcium 8.9 mg/dL (8.6-10.3); Carbon Dioxide 27 mEq/L (23-29); Chloride 109 mEq/L (98-107); Glucose 125 mg/dL (70-105); Osmolality,Calculated 297 (280-300); Potassium 3.4 mEq/L (3.5-5.1); Sodium 143 mEq/L (136-145); eGFR For Non-African Americans > 60 (> 60)
[2018-01-22] MEDS: (Lipase/Protease/Amylase [Creon Dr 24,000 Units Capsu PO SCH ×5 (05:38→14:52)
[2018-01-22] MEDS: *HR* Heparin 5,000 UNIT/ML VIAL SQ SCH ×2 (06:14→14:22)
[2018-01-22] MEDS ORDERED: Nicotine 21 MG PATCH.TD24 TD SCH (12:30)
--- NOTE | 2018-01-22 13:55 | Discharge Summary ---
- NOTES TO OUTPATIENT PROVIDER Notes to Outpatient Provider: PCP in 5 to 7 days Orders not resulted at time of discharge: Pending orders 01/22/18 12:31 Chest Xray, 1 view [XR chest 1V] [XR] Routine 01/22/18 13:50 UA w. reflex culture [Urinalysis Reflex Cult & Micro] [URIN] Stat 01/23/18 04:00 BMP [Basic Metabolic Panel] AM 0400 CBC [Complete Blood Count] [HEME] AM 0400 01/24/18 04:00 BMP [Basic Metabolic Panel] AM 0400 CBC [Complete Blood Count] [HEME] AM 0400 01/25/18 04:00 BMP [Basic Metabolic Panel] AM 0400 CBC [Complete Blood Count] [HEME] AM 0400 Date of Encounter: 01/22/18 Time of Encounter: 13:51 - Discharge Diagnosis (1) Respiratory depression Priority: Primary Status: Acute Assessment and Plan: Resolved. Pt was intubated and in ICU for close monitoring. She was successfully extubated 01/21/2018 an transferred to medical floor. She continues to do well and continues to request discharge home. Discussed with Dr. Courtney and he states pt as been accepted at for admission. (2) Suicide attempt by drug ingestion Priority: Primary Status: Acute Assessment and Plan: Pt pink slipped. She has been seen by psych and recommendation her for her to be admitted to . Pt is medically cleared for transfer to . Qualifiers: Encounter type: initial encounter Qualified Code(s): T50.902A - Poisoning by unspecified drugs, medicaments and biological substances, intentional self- harm, initial encounter (3) Drug-induced encephalopathy Priority: Primary Status: Suspected Assessment and Plan: Acute drug induced encephalopathy resulting in periods of apnea lasting 20-30 seconds and reduced gag reflux necessitating intubation on 01-20 for airway protection. Successfully extubated. Passed nurse swallow study, diet is clears. Advancing diet gradually to regular. If tolerates will transfer to (4) History of pancreatic cancer Priority: Secondary Status: Acute Assessment and Plan: Hx of pancreatic cancer with partial pancreatectomy Supplemental peptides on hold while NPO. Will resume now as diet is being advanced. (5) Acute cystitis Priority: Primary Status: Acute Assessment and Plan: Will discharge on Omnicef for total of 7 days. Urine sent for culture and will adjust antibiotic as deemed necessary following culture results. Pt will be at 1A and can call down for changes to med if necessary and once culture back. Qualifiers: Qualified Code(s): N30.00 - Acute cystitis without hematuria Hospital course: History of present illness: Dr. Reveles Ms. Crook is a 32 year old female with history of asthma, pancreatic cancer status post partial pancreatectomy, migraine headaches, status post splenectomy who presented to the ED via EMS/[facility] due to intentional suicide attempt. At the time of arrival and physical examination, the patient is completely unconscious and unable to be aroused by any form of stimuli so history is primarily received from previous providers and documentation. Patient apparently was seen by her 12-year-old son after taking up to 40 and labeled sleeping pills and/or muscle relaxants. Her son says that he witnessed this and at that time she had locked herself in her room. He called his dad who then called the police. The police knocked down the door and she was taken to the hospital via EMS. In the ED, the patient was noted to be drowsy, however she otherwise was protecting her airway and demonstrated normal vitals. Urine drug screen was normal. She does have a history of suicide attempts in the past, according to medical records. Discharge discussed with: patient - Time Spent with Patient Total time spent providing and/or coordinating discharge services: Greater than 30 minutes - Discharge Medications Prescriptions: RX: Cefdinir [Omnicef] 300 mg PO DAILY 7 Days #14 capsule Home Medications: Omeprazole Magnesium [Prilosec] 40 mg PO DAILY 07/22/17 [History] Naproxen [Naprosyn] 500 mg PO BID #10 tablet 01/15/18 [Rx] Lipase/Protease/Amylase [Creon Dr 24,000 Units Capsule] 2 cap PO AD 01/20/18 [History] Lipase/Protease/Amylase [Creon Dr 24,000 Units Capsule] 3 cap PO TIDWM 01/20/18 [History] RX: Cefdinir [Omnicef] 300 mg PO DAILY 7 Days #14 capsule 01/22/18 [Rx] Allergies/Adverse Reactions: Allergy/AdvReac Type Severity Reaction Status Date / Time Amoxicillin AdvReac Rash Verified 07/08/17 23:06 latex AdvReac Rash Verified 07/08/17 23:06 Penicillins [PCN] AdvReac Rash Verified 07/08/17 23:06 Date of admission: 01/20/18 05:14 Primary care physician: PCP NONE Consults: 01/20/18 05:31 Consult to Pulmonology [CONS] Routine Consulting Provider: Pulm [facility] [place] Reason for Consult: OD, respiratory depression Call Completed: No 01/21/18 07:40 Consult to Psychiatry [CONS] Routine Consulting Provider: Psychiatry [place] Reason consult: Sitter/1:1 Other reason and/or additional details: overdose patient now extubated needs pink slip and evaulate for inpatient treatment. plan to transfer to floor today. seen by psych yesterday per 1a 01/21/18 11:33 Consult to Speech Therapy [CONS] Routine Comment: Evaluate, develop and implement POC Reason for Consult: dysphagia post intubation Call Completed: No 01/21/18 11:35 Consult to Bible Worker [CONS] Routine Reason for SW Consult: coordinate out patient treament per psych Discharging clinician: Suly Loomis Anticipated date of discharge: 01/22/18 - Constitutional Vitals: Temp Pulse Resp BP Pulse Ox 98.1 F 75 16 105/69 100 01/22/18 11:05 01/22/18 11:05 01/22/18 11:05 01/22/18 11:05 01/22/18 11:05 Exam: Gen: Vitals noted. Patient is alert and oriented times 3 Eyes: anicteric sclerae, moist conjunctivae HENT: Atraumatic; oropharynx clear with moist mucous membranes and no mucosal ulcerations; normal hard and soft palate Neck: Trachea midline; supple, no thyromegaly or lymphadenopathy Cardiac: RRR, no murmur, +S1/S2 Pulmonary: CTA bilaterally, no wheezes, rales or rhonchi, equal chest expansion Abdomen: soft, nontender, no guarding. No masses or hepatosplenomegaly MSK: ROM intact, no joint swelling noted Extremities: no BLE edema, nontender calf, no cyanosis or clubbing Skin: Normal temperature, turgor and texture; no rash, ulcers or subcutaneous nodules Neuro: Patient is not alert to any form of stimuli - Patient Status Disposition: Home, Self-Care Condition: Good Overall status at discharge: patient is back to baseline - Discharge Instructions Follow Up With: NONE,PCP [Primary Care Provider] - - Diet and Activity Activity: increase activity as tolerated Diet: regular diet
[2018-01-22 13:57] LABS: Bilirubin,Urine Negative (Negative); Blood,Urine Negative (Negative); Clarity,Urine Cloudy (Clear); Color,Urine Yellow (Yellow); Glucose,Urine (UA) Normal (Normal); Ketones,Urine Negative (Negative); Leukocyte Esterase,Urine Small (Negative); Nitrite,Urine Negative (Negative); PH,Urine 6.5 pH Units (5.0-8.0); Protein,Urine Negative (Neg-Trace); Specific Gravity,Urine 1.014 (1.010-1.025); Urobilinogen,Urine Normal (Normal)
--- NOTE | 2018-01-22 14:14 | Electrocardiograph Report ---
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
[2018-01-22 14:24] LABS: Amorphous Sediment,Urine Many (Few); Mucus,Urine Many (Few); Squamous Epithelial Cell,Urine Moderate per lpf (None-Few)
[2018-01-22 14:25] LABS: Bacteria,Urine Moderate per hpf (None-Few); RBC,Urine 0-3 per hpf (0-3)
[2018-01-22 15:39] VITALS: BP 110/69
[2018-01-23] MEDS ORDERED: Cefdinir 300 MG CAPSULE PO SCH (09:00)
== END 2018-01-22 17:29 | disposition home or self-care (01) | DRG 812 ==
LOC: ICNU → 3ANU 01-21 16:00
PROVIDERS: ADMIT Internal Medicine; ATTEND Internal Medicine